=== PATIENT | female | born 1955 | race Caucasian/White ===

== ENCOUNTER 2024-03-22 17:53 | Emergency (ER) | payer MEDICARE, BC ==
[2024-03-22] MEDS ORDERED: PROPOFOL 20 ML ONE (21:54)
== END 2024-03-22 22:51 | disposition home or self-care (01) ==
LOC: ERS 17:53
DX: S52.572A Other intraarticular fracture of lower end of left radius, initial encounter for closed fracture (principal); S52.612A Displaced fracture of left ulna styloid process, initial encounter for closed fracture; W10.9XXA Fall (on) (from) unspecified stairs and steps, initial encounter
CPT/HCPCS: 73100; J2704